=== PATIENT | female | born 1950 | race Caucasian/White ===

== ENCOUNTER 2016-09-12 18:04 | Emergency (ER) | payer MEDICARE | END 2016-09-12 22:40 | disposition home or self-care (01) | LOC: ER 18:04 | DX: R07.81 Pleurodynia (principal); M79.1 Myalgia; M25.521 Pain in right elbow; W01.0XXA Fall on same level from slipping, tripping and stumbling without subsequent striking against object, initial encounter; Y92.007 Garden or yard of unspecified non-institutional (private) residence as the place of occurrence of the external cause; Z88.0 Allergy status to penicillin; Z88.5 Allergy status to narcotic agent; Z79.899 Other long term (current) drug therapy | CPT/HCPCS: 71250; 73060; 93005; 96372; 99283-25; 99284 ==